=== PATIENT | male | born 1965 | race Caucasian/White ===

== ENCOUNTER 2019-01-26 20:54 | Outpatient (CLI) | payer BC, OTHER | END 2019-01-26 20:55 | disposition short-term general hospital (02) | LOC: EMS 20:54 | PROVIDERS: ATTEND Surgery | DX: R07.89 Other chest pain (principal) | CPT/HCPCS: A0425; A0427 ==

== ENCOUNTER 2021-01-17 04:04 | Outpatient (CLI) | payer BC | END 2021-01-17 23:59 | disposition short-term general hospital (02) | LOC: EMS 04:04 | DX: R53.1 Weakness (principal); R11.2 Nausea with vomiting, unspecified; R19.7 Diarrhea, unspecified | CPT/HCPCS: A0425; A0429 ==

== ENCOUNTER 2021-02-11 10:37 | Outpatient (CLI) | payer BC | END 2021-02-11 10:38 | disposition short-term general hospital (02) | LOC: EMS 10:37 | DX: R07.9 Chest pain, unspecified (principal) | CPT/HCPCS: A0425; A0427 ==

== ENCOUNTER 2021-04-06 06:47 | Outpatient (CLI) | payer BC | END 2021-04-06 06:48 | disposition short-term general hospital (02) | LOC: EMS 06:47 | DX: R07.9 Chest pain, unspecified (principal) | CPT/HCPCS: A0425; A0427 ==